=== PATIENT | female | born 1985 | race Caucasian/White ===

== ENCOUNTER 2021-03-11 10:30 | Emergency (ER) | payer OTHER, MEDICAID, SELFPAY ==
--- NOTE | ~2021-03-11 | XR_ITS ---
XR chest 1V 03/11/2021 11:07 Indication: CovidPneumonia. Shortness of breath. Procedure: PA view of the chest Comparison: No prior studies for comparison. Findings: Patchy bilateral airspace disease, compatible with pneumonia. No pleural effusion or pneumo thorax. Heart size normal. No acute osseous abnormality. Impression: 1: Patchy bilateral pneumonia. Reviewed, dictated and finalized at location A. Impression: 1: Patchy bilateral pneumonia.
--- NOTE | ~2021-03-11 | CT_ITS ---
EXAMINATION: CTA chest PE protocol DATE: 03/11/2021 12:35 CDT INDICATION: Shortness of breath. Chest pain. Covid infection. TECHNIQUE: Computed tomographic angiography (CTA) of the chest was performed with 100 mL Omnipaque-35 0 intravenous contrast. The dose-length product was 931.78 mGy-cm. Maximum intensity projection 3D-re constructions of the aorta and other arteries were constructed by the technologist on a separate work station. COMPARISON: Chest dated 03/11/2021. FINDINGS: Study is technically adequate without evidence for pulmonary embolism. No significant pleur al or pericardial effusion. Heart size is normal. No thoracic lymphadenopathy. Patchy [place] throughout both lungs, compatible with pneumonia. No endobronchial lesions. IMPRESSION: 1. Patchy bilateral airspace disease, compatible with pneumonia. Reviewed, dictated and finalized at location A.
--- NOTE | 2021-03-11 10:35 | ECG_ITS ---
Measurements Intervals [place] Rate: 83 P: 54 [place]: 118 QRS: 37 QRSD: 91 T: 43 QT: 379 QTc: 446 Interpretive Statements SINUS RHYTHM WITH SHORT TX INTERVAL NONSPECIFIC ST & T-WAVE ABNORMALITY- ANTEROLATERAL LEADS BASELINE ARTIFACT- II, III, AVR, AVL, AVF, V3 BORDERLINE ECG Electronically Signed On 03-11-2021 14:34:53 CDT by Lee Britt D.O.
[2021-03-11 10:41] VITALS: BP 105/63; PULSE 89; RESP 20; TEMP 36.4; O2SAT 90
[2021-03-11 10:58] LABS: Basophils Percent Auto 0.3 % (0.2-1.2); Hematocrit 45.2 % (37.0-47.0); Hemoglobin 14.6 g/dL (12.0-15.0); Immature Granulocyte Absolute 0.09 K/mm3 (0.00-0.031); Immature Granulocyte Percent A 0.8 % (0-0.5); Lymphocytes Absolute Auto 2.33 K/mm3 (0.9-3.2); Lymphocytes Percent Auto 20.6 % (18.3-44.2); Mean Corpuscular HGB Conc 32.3 g/dl (32-36); Mean Corpuscular Hemoglobin 28.1 pg (26-34); Mean Corpuscular Volume 87.1 fl (80-100); Mean Platelet Volume 9.1 fl (7.4-10.4); Monocytes Absolute Auto 0.8 K/mm3 (0.1-0.6); Monocytes Percent Auto 7.3 % (2.6-8.5); Platelet Count Result 439 k/mm3 (150-375); Red Blood Count 5.19 M/mm3 (4.2-5.4); Red Cell Distribution Width 14.4 % (11.5-14.5); White Blood Count 11.3 K/mm3 (4.5-10.0)
[2021-03-11 11:06] LABS: Anion Gap 14 mmol/L (8-16); Blood Urea Nitrogen 20 mg/dL (7-17); Calcium 9.5 mg/dL (8.4-10.2); Carbon Dioxide 23 mmol/L (22-30); Chloride 108 mmol/L (98-107); Estimated CRCL calculation 100 ml/min; Estimated Glomerular Filt Rate > 60; Glucose 101 mg/dL (65-110); Potassium 3.8 mmol/L (3.4-5.0); Sodium 145 mmol/L (137-145)
--- NOTE | 2021-03-11 11:29 | ED.SOB ---
HPI - SOB/Dyspnea General Chief Complaint: Shortness of Breath/Dyspnea Stated Complaint: covid +, sob Time Seen by Provider: 03/11/21 11:00 Source: RN notes reviewed History of Present Illness HPI Narrative: Patient presents emergency department from home for shortness of breath. Patient states she tested positive for COVID-19 on 04 March her symptoms started on the . She states that she has had progressive shortness of breath as well as a cough is productive of blood-tinged sputum patient states that shortness of breath is worse with exertion she states she had had fevers earlier in the course of her Covid no fevers with past several days. Denies any chest pain abdominal pain nausea vomiting or any other symptoms. States she did not receive Covid vaccinations Related Data Home Medications Medication Instructions Recorded Confirmed escitalopram oxalate 20 mg tablet 20 mg PO DAILY 05/02/20 07/27/20 norethindrone acetate 1.5 1 tablet PO DAILY 05/02/20 07/27/20 mg-ethinyl estradiol 30 mcg tablet propranolol 40 mg tablet 40 mg PO Q12H 05/02/20 07/27/20 Allergies Allergy/AdvReac Type Severity Reaction Status Date / Time topiramate [From Topamax] AdvReac Other Verified 03/11/21 11:36 Review of Systems Review of Systems: Gen.: Denies fevers or chills ENT: Denies congestion Respiratory: See HPI CV: Denies chest pain or palpitations GI: Denies abdominal pain nausea, emesis or diarrhea Musculoskeletal: Denies back pain or muscle pain Neuro: Denies numbness, tingling, weakness or focal weakness Skin: Denies rash Except as documented, all other systems reviewed and negative [facility] Past Medical History Medical History Depression Surgical History Surgical History History of arthroplasty of knee right knee History of laparoscopy Family History Family History Mother Hypertension Grandparent Lung cancer Grandparent Breast cancer Social History Social History Second hand tobacco smoke exposure: No Alcohol intake: current Alcohol use details: rare Exam Narrative: APPEARANCE: No acute distress, nontoxic, resting in bed EYES: EOMI HEENT: Normocephalic, atraumatic, OMM RESPIRATORY: No respiratory distress coarse breath sounds throughout bilateral lung palafox CARDIOVASCULAR: Regular rate and rhythm without murmurs rubs or gallops. ABDOMINAL: Soft, nontender, nondistended, no rebound or guarding MUSCULOSKELETAl: Moves all extremities. No clubbing, cyanosis or edema. NEURO: Awake and alert. Following commands, speech normal, no focal deficits SKIN:: Warm, dry. No rashes lesions or abrasions PSYCHIATRIC: Normal affect/mood, Course Course Emergency Course: Patient with walking pulse ox with oxygen saturations decreasing to 88% with ambulation Discussed with JOSE ELIAS Granados for Dr. Bragg presentation work-up agrees with admission at this time Discussed with patient and family results of workup and diagnosis. Discussed need for admission. Patient and family understand and agree to current treatment plan Vital Signs Vital signs: Vital Signs Temperature 97.6 F 03/11/21 10:41 Pulse Rate 89 03/11/21 10:41 Respiratory Rate 20 03/11/21 10:41 Blood Pressure 105/63 03/11/21 10:41 Pulse Oximetry 90 03/11/21 10:41 Temperature 97.6 F 03/11/21 10:41 Pulse Rate 89 03/11/21 10:41 Respiratory Rate 20 03/11/21 10:41 Blood Pressure 105/63 03/11/21 10:41 Pulse Oximetry 90 03/11/21 10:41 MDM - SOB/Dyspnea Lab Data Result diagrams: 03/11/21 10:45 03/11/21 10:45 Labs: Lab Results 03/11/21 03/11/21 03/11/21 Range/Units 10:45 10:45 11:17 WBC 11.3 H (4.5-10.0) K/mm3 RBC 5.19 (4.2-5.4) M/mm3 Hgb 14.6 (12.
[2021-03-11 11:30] VITALS: BP 111/71; PULSE 83; RESP 20; O2SAT 95
[2021-03-11 11:38] LABS: CRP 5.5 mg/dL (<1.0); Lactate Dehydrogenase 1102 U/L (313-618)
[2021-03-11 11:42] LABS: Partial Thromboplastin Time 22.4 SECONDS (22.3-36.8); Prothrombin Time 13.5 Seconds (11.1-14.7)
[2021-03-11 11:45] LABS: D Dimer 1.22 ug/mL (<0.48)
[2021-03-11 13:00] VITALS: BP 118/74; PULSE 80; RESP 20; O2SAT 97
[2021-03-11] MEDS: ALBUTEROL SULFATE (*SP) AEROSOL 1 PUFF 2 PUFF INHALATION (13:53)
[2021-03-11 14:40] VITALS: BP 128/44; PULSE 82; RESP 20; O2SAT 94
[2021-03-11] MEDS: DEXAMETHASONE SOD PHOS INJ 4 MG/ML VIAL 6 MG IV PUSH (14:40)
[2021-03-11 15:08] VITALS: BP 120/86; PULSE 81; RESP 22; O2SAT 99
== END 2021-03-11 15:27 | disposition left against medical advice (07) ==
PROVIDERS: Emergency Provider Emergency Medicine; PCP Physician Assistant
DX: U07.1 COVID-19 (principal); J96.01 Acute respiratory failure with hypoxia; J12.82 Pneumonia due to coronavirus disease 2019; F32.A Depression, unspecified; R94.31 Abnormal electrocardiogram [ECG] [EKG]
CPT/HCPCS: 36415; 71045; 71275; 80048; 83615; 85025; 85380; 85610; 85730; 86140; 93005; 96374; 99284; A9270; J1100; Q9967

== ENCOUNTER 2021-11-21 09:36 | Outpatient (CLI) | payer OTHER, MEDICAID, SELFPAY ==
--- NOTE | ~2021-11-21 | US_ITS ---
EXAMINATION: US abdomen complete DATE: 11/21/2021 10:35 INDICATION: Abdominal pain. Right upper quadrant pain. TECHNIQUE: Multiple grayscale and Doppler ultrasound images of the abdomen were obtained. COMPARISON: 09/20/2016. MR abdomen 10/21/2016. FINDINGS: Limited visibility of the pancreas. The liver is normal with normal echogenicity and echote xture. 1.4 cm hyperechoic right lobe lesion, likely hemangioma. No surface nodularity. Normal hepatop etal flow in the main portal vein. Contracted gallbladder, with consequent wall thickening to 3 mm. M ultiple gallstones. The normal common bile duct measures 4 mm. There was no sonographic Hernández sign. The visualized portions of the aorta and inferior vena cava are normal. The right kidney measures 11.2 x 6.2 x 5.3 cm. The left kidney measures 10.8 x 4.6 x 5.2 cm. The kidn eys demonstrate normal parenchymal echogenicity. There is no hydronephrosis. The spleen is normal in appearance and measures 9 cm. IMPRESSION: 1. Cholelithiasis. Reviewed, dictated and finalized at location K. IMPRESSION: 1. Cholelithiasis.
== END 2021-11-21 09:37 | disposition home or self-care (01) ==
PROVIDERS: PCP Physician Assistant; Visit Provider Physician Assistant
DX: R10.11 Right upper quadrant pain (principal); K80.20 Calculus of gallbladder without cholecystitis without obstruction
CPT/HCPCS: 76700

== ENCOUNTER 2023-03-29 16:15 | Outpatient (CLI) | payer OTHER, SELFPAY ==
--- NOTE | ~2023-03-29 | XR_ITS ---
XR knee LT 3V DATE: 03/29/2023 16:37 INDICATION: Chronic left knee pain TECHNIQUE: AP, lateral, sunrise views COMPARISON: None FINDINGS: Very prominent periarticular spurring at the patellofemoral joint. There is spurring as wel l at the medial and lateral compartments but medial and lateral compartment joint spaces are well pre served. No fracture or dislocation or joint effusion. No radiopaque intra-articular loose body or chondrocalc inosis is evident. No periosteal reaction or bone destruction. IMPRESSION: Tricompartment osteoarthritis Reviewed, dictated and finalized at location B.
== END 2023-03-29 16:16 | disposition home or self-care (01) ==
LOC: ANHIMG 16:18
PROVIDERS: PCP Physician Assistant; Visit Provider Physician Assistant
DX: M17.12 Unilateral primary osteoarthritis, left knee (principal); G89.29 Other chronic pain
CPT/HCPCS: 73562